=== PATIENT | female | born 2000 | race Caucasian/White ===

== ENCOUNTER → 2019-07-21 | Outpatient (REF) | payer OTHER ==
[2019-07-21 13:01] LABS: APPEARANCE, URINE HAZY (CLEAR); BACTERIA, URINE AUTO 3+ (NEGATIVE); BILIRUBIN, URINE AUTO NEGATIVE (NEGATIVE); BLOOD, URINE BLOOD NEGATIVE (NEGATIVE); COLOR, URINE YELLOW (YELLOW); GLUCOSE, URINE (UA) AUTO NEGATIVE (NEGATIVE); KETONE, URINE AUTO NEGATIVE (NEGATIVE); LEUKOCYTE ESTERASE, URINE AUTO TRACE (NEGATIVE); MUCUS, URINE SMALL (NEGATIVE); NITRITE, URINE AUTO POSITIVE (NEGATIVE); PROTEIN, URINE AUTO NEGATIVE (NEGATIVE); RBC, URINE AUTO 1 /HPF (0-3); SPECIFIC GRAVITY URINE AUTO 1.019 (1.002-1.035); SQUAMOUS EPITHELIAL CELL UR AU 4 /HPF (0-6); UROBILINOGEN, URINE AUTO 0.2 mg/dL (0.0-2.0); WBC, URINE AUTO 8 /HPF (0-3)
== END ==
LOC: M LAB REF 12:20
PROVIDERS: ATTEND Nurse Practitioner Women's Health
DX: N39.0 Urinary tract infection, site not specified (principal)

== ENCOUNTER → 2019-10-29 | Outpatient (REF) | payer OTHER ==
[2019-10-29 16:40] LABS: APPEARANCE, URINE CLEAR (CLEAR); BACTERIA, URINE AUTO 1+ (NEGATIVE); BILIRUBIN, URINE AUTO NEGATIVE (NEGATIVE); BLOOD, URINE BLOOD NEGATIVE (NEGATIVE); COLOR, URINE STRAW (YELLOW); GLUCOSE, URINE (UA) AUTO NEGATIVE (NEGATIVE); KETONE, URINE AUTO NEGATIVE (NEGATIVE); LEUKOCYTE ESTERASE, URINE AUTO NEGATIVE (NEGATIVE); NITRITE, URINE AUTO NEGATIVE (NEGATIVE); PROTEIN, URINE AUTO NEGATIVE (NEGATIVE); RBC, URINE AUTO 0 /HPF (0-3); SPECIFIC GRAVITY URINE AUTO 1.008 (1.002-1.035); SQUAMOUS EPITHELIAL CELL UR AU 0 /HPF (0-6); UROBILINOGEN, URINE AUTO 0.2 mg/dL (0.0-2.0); WBC, URINE AUTO 0 /HPF (0-3)
== END ==
LOC: M LAB REF 16:21
PROVIDERS: ATTEND Nurse Practitioner Women's Health
DX: R30.0 Dysuria (principal)

== ENCOUNTER → 2019-10-30 | Outpatient (CLI) | payer OTHER ==
--- NOTE | 2019-10-30 12:26 | REP ---
PELVIC ULTRASOUND: Real-time sonographic evaluation of the pelvis is performed utilizing transabdominal and endovaginal technique. Bladder measures 6.0 x 5.1 x 7.6 cm. Uterus measures 8.4 x 3.4 x 4.3 cm. Endometrial thickness is 3 mm. IUD is seen within the endometrial canal. Right ovary is enlarged measuring 6.5 x 5.1 x 6.9 cm. It contains a cyst with a couple of peripheral septations measuring 5.9 x 4.3 x 5.8 cm. There is no torsion of the right ovary with duplex Doppler evaluation. Left ovary measures 3.3 x 2.6 x 2.1 cm with a dominant follicle 1.8 cm in diameter. There is no torsion of the left ovary. No free fluid is seen. IMPRESSION: Right ovarian cyst 5.9 cm maximally with a couple of peripheral thin septations. Recommend followup ultrasound in 2 months to insure resolution. Electronically Signed by Myron Watson MD 10/30/2019 08:13 P
== END ==
LOC: M RAD 10:31
PROVIDERS: ATTEND Nurse Practitioner Women's Health
DX: R10.9 Unspecified abdominal pain (principal)

== ENCOUNTER → 2019-12-30 | Outpatient (CLI) | payer OTHER ==
--- NOTE | 2019-12-31 05:26 | REP ---
Clinical: Follow up ovarian cyst. Comparison: 10/30/2019. Technique: Transabdominal pelvic ultrasound followed by transvaginal examination for better evaluation of the endometrium and adnexa with color Doppler evaluation of the ovaries. Findings: Bladder is under distended and currently measures 5.0 x 3.8 x 1.6 cm. Normal anteverted uterus measures 7.9 x 3.0 x 4.9 cm. Endometrial complex measures 2.8 mm thickness and IUD in satisfactory position. Bilateral ovaries are normal in appearance and vascularity. Right ovary measures 3.7 x 2.4 x 2.4 cm (RI 0.59) and includes 2.2 x 1.6 x 1.2 cm simple, likely physiologic cyst and multiple follicles. Left ovary measures 3.7 x 2.6 x 2.1 cm and includes 1.9 x 2.5 x 1.6 cm complex septated cyst and multiple follicles. No pelvic fluid or adnexal mass lesion. Impression: 1. Current examination demonstrates cystic changes and follicles different from prior examination likely representing physiologic changes. Largest right ovarian cyst now measures 2.2 cm (previously noted at 5.9 cm). Electronically Signed by Waylon Bay MD 12/31/2019 05:17 A
== END ==
LOC: M RAD 10:00
PROVIDERS: ATTEND Nurse Practitioner Women's Health
DX: D39.11 Neoplasm of uncertain behavior of right ovary (principal); N83.201 Unspecified ovarian cyst, right side

== ENCOUNTER → 2020-07-10 | Outpatient (REF) | payer SELFPAY | LOC: EDSTATUS 11:10 → M LABSMTC 11:28 | PROVIDERS: ATTEND Family Medicine | DX: Z20.828 Contact with and (suspected) exposure to other viral communicable diseases (principal) ==

== ENCOUNTER → 2020-09-09 | Outpatient (REF) | payer SELFPAY | LOC: EDSTATUS 11:20 → M LABSMTC 11:21 | PROVIDERS: ATTEND Pediatrics | DX: Z20.822 Contact with and (suspected) exposure to COVID-19 (principal) ==

== ENCOUNTER → 2020-09-23 | Outpatient (REF) | payer OTHER ==
[2020-09-23 16:07] LABS: CHLAMYDIA DNA AMPLIFICATION NEGATIVE (NEGATIVE); GC DNA AMPLIFICATION NEGATIVE (NEGATIVE)
== END ==
LOC: M SFHCWAGY 13:30
PROVIDERS: ATTEND Nurse Practitioner Women's Health
DX: Z12.4 Encounter for screening for malignant neoplasm of cervix (principal)
CPT/HCPCS: 87491; 87591; G0123

== ENCOUNTER → 2020-12-16 | Outpatient (REF) | payer OTHER ==
[2020-12-16 13:49] LABS: HEMATOCRIT 39.9 % (36.0-47.0); HEMOGLOBIN 13.2 g/dl (12.0-15.5); MEAN CORPUSCULAR HEMOGLOBIN 29.8 pg (27.0-33.0); MEAN CORPUSCULAR HGB CONC 33.1 g/dl (32.0-36.5); MEAN CORPUSCULAR VOLUME 90.1 fl (80.0-96.0); PLATELET COUNT, AUTOMATED 230 10^3/uL (150-450); RED BLOOD COUNT 4.43 10^6/uL (4.00-5.40); WHITE BLOOD COUNT 11.7 10^3/uL (4.0-10.0)
[2020-12-16 14:10] LABS: HEMOGLOBIN A1c 4.8 %
[2020-12-16 14:26] LABS: FREE T4 1.15 NG/DL (0.76-1.46); GLUCOSE CHALLENGE TEST 1 HOUR 109 MG/DL (LESS THAN 140); THYROID STIMULATING HORMONE 0.463 uIU/ML (0.358-3.740)
[2020-12-16 15:07] LABS: HEPATITIS C VIRUS ABY INDEX < 0.0 INDEX (<0.8)
[2020-12-16 15:26] LABS: CHLAMYDIA DNA AMPLIFICATION NEGATIVE (NEGATIVE); GC DNA AMPLIFICATION NEGATIVE (NEGATIVE)
== END ==
LOC: M PLALAB 11:14
PROVIDERS: ATTEND Advanced Practice Midwife
DX: Z36.89 Encounter for other specified antenatal screening (principal); Z3A.08 8 weeks gestation of pregnancy

== ENCOUNTER → 2021-03-10 | Outpatient (CLI) | payer OTHER ==
--- NOTE | 2021-03-10 08:54 | REP ---
INDICATION: ANATOMY COMPARISON: None. TECHNIQUE: Transabdominal obstetrical ultrasound with color Doppler evaluation. FINDINGS: Examination demonstrates a single live intrauterine in variable presentation. motion is identified by technologist. Placenta is noted posterior and grade 1 without evidence for placenta previa or abruption. Amniotic fluid volume is normal. Cervix measures 3.5 cm in length and appears closed.. Selected gestational age: 20 weeks 5 days with VERONIKA 07/23/2021. Gestational age by current measurements 20 weeks 3 days with VERONIKA 07/25/2021. FHR equals 143 beats per minute. Estimated weight 345 grams (25thpercentile). Anatomical assessment demonstrates normal structures including cranium, choroid plexus, cavum, cerebellum/posterior fossa, facial features, lungs, four-chamber heart, diaphragm, stomach, cord insertion/three-vessel cord, kidneys/bladder, spine, and extremities. IMPRESSION: Single live intrauterine in variable presentation demonstrating appropriate estimated weight. Limited evaluation of the facial profile and cardiac ventricular outflow tracts. Remainder of the anatomical assessment is complete and normal. <Electronically signed by Waylon Bay > 03/10/21 [id number]
== END ==
LOC: M WHC 07:55
PROVIDERS: ATTEND Obstetrics & Gynecology
DX: Z36.89 Encounter for other specified antenatal screening (principal); Z3A.16 16 weeks gestation of pregnancy

== ENCOUNTER → 2021-03-31 | Outpatient (CLI) | payer OTHER ==
--- NOTE | 2021-03-31 10:10 | REP ---
INDICATION: F/U ANATOMY. COMPARISON: Obstetric ultrasound dated 03/10/2021. TECHNIQUE: Multiple ultrasonographic images of the gravid uterus. FINDINGS: On the comparison study the facial profile, four-chamber view of the heart and cardiac right left ventricular outflow tracts were not optimally demonstrated. IMPRESSION: On the study today the facial profile, four-chamber view of the heart in the cardiac right left ventricular outflow tracts are optimally demonstrated and are unremarkable. There is a single intrauterine gestation in a cephalic presentation. heart rate is 158 beats per minute. The placenta is posterior with grade 1 maturity. There is no previa. Subjectively the amniotic fluid volume is normal. The cervix measures 4.2 cm length. The composite ultrasound gestational age by today's study is 23 weeks 6 days with an VERONIKA of 07/22/2021. Gestational age by the 1st study is 23 weeks 5 days with an VERONIKA of 07/23/2021. Review of the growth graphs indicates normal interval growth. weight is 622 g/1 lb, 5 oz. This is the 42nd percentile for 23 weeks 5 days. <Electronically signed by Myron Estrada > 03/31/21 [id number]
== END ==
LOC: M WHC 08:23
PROVIDERS: ATTEND Advanced Practice Midwife
DX: Z36.9 Encounter for antenatal screening, unspecified (principal); Z3A.23 23 weeks gestation of pregnancy

== ENCOUNTER → 2021-04-08 | Outpatient (REF) | payer OTHER | LOC: M PLALAB 12:41 | PROVIDERS: ATTEND Obstetrics & Gynecology | DX: Z36.89 Encounter for other specified antenatal screening (principal); Z3A.24 24 weeks gestation of pregnancy ==

== ENCOUNTER → 2021-04-26 | Outpatient (CLI) | payer OTHER ==
[2021-04-26 15:47] LABS: HEMATOCRIT 38.3 % (36.0-47.0); HEMOGLOBIN 12.6 g/dl (12.0-15.5); MEAN CORPUSCULAR HEMOGLOBIN 30.1 pg (27.0-33.0); MEAN CORPUSCULAR HGB CONC 32.9 g/dl (32.0-36.5); MEAN CORPUSCULAR VOLUME 91.4 fl (80.0-96.0); PLATELET COUNT, AUTOMATED 248 10^3/uL (150-450); RED BLOOD COUNT 4.19 10^6/uL (4.00-5.40)
== END ==
LOC: M PLALAB 12:40
PROVIDERS: ATTEND Obstetrics & Gynecology
DX: Z36.89 Encounter for other specified antenatal screening (principal); Z3A.24 24 weeks gestation of pregnancy

== ENCOUNTER → 2021-06-24 | Outpatient (REF) | payer OTHER | LOC: M SFHCWAGY 10:07 | PROVIDERS: ATTEND Obstetrics & Gynecology | DX: Z34.93 Encounter for supervision of normal pregnancy, unspecified, third trimester (principal) ==

== ENCOUNTER 2021-07-21 10:21 | Outpatient (CLI) | payer OTHER ==
[~2021-07-21] VITALS: Ht 160 cm; Wt 99.2 kg
[2021-07-21 10:41] VITALS: BP 130/78
[2021-07-21] MEDS ORDERED: TUMS500C PO (10:51)
[2021-07-21] MEDS ORDERED: STUACAP PO (10:51)
[2021-07-21] MEDS ORDERED: ACET325C5 PO (20:08)
[2021-07-21] MEDS ORDERED: BENA25CA4 PO (20:08)
== END 2021-07-21 11:45 | disposition home or self-care (01) ==
LOC: M LDO 10:21
PROVIDERS: ATTEND Obstetrics & Gynecology
DX: O60.03 Preterm labor without delivery, third trimester (principal); Z3A.39 39 weeks gestation of pregnancy
CPT/HCPCS: 59025; G0378; G0463

== ENCOUNTER 2021-07-21 19:49 | Inpatient (IN) | payer OTHER ==
[~2021-07-21] VITALS: Ht 165.1 cm; Wt 99.7 kg
[~2021-07-21 19:49] MED LIST: STUACAP PO; TUMS500C PO
[2021-07-21 20:01] VITALS: BP 125/73
[2021-07-21] MEDS ORDERED: ACET325C5 PO (20:08)
[2021-07-21] MEDS ORDERED: BENA25CA4 PO (20:08)
[2021-07-21] MEDS ORDERED: PROMETHAZINE INJ 25 MG/ML VIAL (J2550) IV ONE (20:45)
[2021-07-21] MEDS ORDERED: BUTORPHANOL 2 MG/ML INJ (J0595) IV ONE (20:45)
[2021-07-21 21:01] VITALS: BP 102/65
[2021-07-21 21:11] LABS: HEMATOCRIT 40.9 % (36.0-47.0); HEMOGLOBIN 13.9 g/dl (12.0-15.5); MEAN CORPUSCULAR HEMOGLOBIN 29.7 pg (27.0-33.0); MEAN CORPUSCULAR VOLUME 87.4 fl (80.0-96.0); PLATELET COUNT, AUTOMATED 206 10^3/uL (150-450); RED BLOOD COUNT 4.68 10^6/uL (4.00-5.40); WHITE BLOOD COUNT 17.6 10^3/uL (4.0-10.0)
[2021-07-21] MEDS ORDERED: LACTATED RINGER'S 1000 ML IV STA (21:26)
[2021-07-21] MEDS ORDERED: METHYLERGONOVINE MALEATE 0.2 MG/ML VIAL (J2210) IM PRN (21:30)
[2021-07-21] MEDS ORDERED: LIDOCAINE 1% MDV 20ML VIAL INFIL PRN (21:30)
[2021-07-21] MEDS ORDERED: TRANEXAMIC ACID INJection 1,000 MG in NS 100 ML IV PRN (21:30)
[2021-07-21] MEDS ORDERED: CARBOPROST TROMETHAMINE 250 MCG/ML AMP IM PRN (21:30)
[2021-07-21] MEDS ORDERED: OXYTOCIN DRIP 30 UNITS in IV 1 EA IV SCH (21:30)
[2021-07-21 22:05] VITALS: BP 120/79
[2021-07-21 23:06] VITALS: BP 99/55
[2021-07-21 23:11] LABS: HIV 1&2 SCREEN CENTAUR NEGATIVE (NEGATIVE)
[2021-07-22] VITALS (78 sets, daily range): BP systolic 95–145; BP diastolic 53–99
[2021-07-22] MEDS ORDERED: FENTANYL 2MCG/ML ROPIVACAINE 0.2% IN 0.9% NACL 100ML IVBAG As Ordered ONE (01:33)
[2021-07-22] MEDS ORDERED: diphenhydrAMINE 50MG/ML VIAL (J1200) IV PRN (02:14)
[2021-07-22] MEDS ORDERED: ONDANSETRON 4MG/2ML VIAL IV PRN (02:14)
[2021-07-22] MEDS ORDERED: LACTATED RINGER'S 1000 ML IV PRN (02:14)
[2021-07-22] MEDS ORDERED: NALOXONE INJ 0.4MG/1ML VIAL (J2310 PER 1MG) IV PRN (02:14)
[2021-07-22] MEDS ORDERED: REFRIGERATOR IV KEYS XX PRN (02:14)
[2021-07-22] MEDS ORDERED: EPIDURAL COMMENT XX SCH (02:14)
[2021-07-22] MEDS ORDERED: EPIDURAL/PCA KEYS XX PRN (02:14)
[2021-07-22] MEDS: FENTANYL/ROPIVACAINE/NACL BAG 100 ML EPIDURAL SCH ×2 (03:34→11:45)
[2021-07-22] MEDS: LR 1,000 ML IV SCH ×4 (03:35→14:18)
[2021-07-22] MEDS: ePHEDrine SULFATE 25 MG/5 ML(5MG/ML) SYRINGE IV PRN ×2 (04:41→05:15)
[2021-07-22 15:59] LABS: CORD GAS ABE A -6.6; CORD GAS ABE V -9.3; CORD GAS HCO3 A 18.5 MEQ/L; CORD GAS O2 SAT A 77.2 %; CORD GAS O2 SAT V 69.1 %; CORD GAS PCO2 A 35.8 mmHg; CORD GAS PCO2 V 49.9 mmHg; CORD GAS PH A 7.33 UNITS; CORD GAS PH V 7.199 UNITS; CORD GAS PO2 A 33.9 mmHg; CORD GAS PO2 V 34.9 mmHg; CORD GAS SBC A 18.7 MEQ/L; CORD GAS SBC V 16.6 MEQ/L; CORD GAS TCO2 A 19.6 MEQ/L; CORD GAS TCO2 V 20.6 MEQ/L
[2021-07-22] MEDS ORDERED: OXYTOCIN DRIP 30 UNITS in IV 1 EA IV SCH (16:10)
[2021-07-22] MEDS ORDERED: MEASLES,MUMPS,RUBELLA VACCINE INJ (MMR-II) (90707) SC SCH (16:10)
[2021-07-22] MEDS ORDERED: ACETAMINOPHEN TAB 650MG DOSE (2X325MG) PO PRN (16:10)
[2021-07-22] MEDS ORDERED: IBUPROFEN 600MG TAB PO PRN (16:10)
[2021-07-22] MEDS ORDERED: RHOGAM 300 MCG (1500 IU) INJ (J2790) IM SCH (16:10)
[2021-07-22] MEDS ORDERED: MOM 30ML SUSPENSION UDC PO PRN (16:10)
[2021-07-22] MEDS ORDERED: METHYLERGONOVINE MALEATE 0.2 MG TAB PO PRN (16:10)
[2021-07-22] MEDS ORDERED: ANUSOL HC CREAM 30GM TOP PRN (16:10)
[2021-07-22] MEDS ORDERED: DIBUCAINE 1% OINTMENT 30GM TOP PRN (16:10)
[2021-07-22] MEDS: ACETAMINOPHEN 500 MG TAB PO PRN ×2 (17:25→23:30)
[2021-07-22] MEDS: DOCUSATE SODIUM 100MG CAPSULE PO PRN (23:29)
[2021-07-23] MEDS: IBUPROFEN 800 MG TAB PO PRN ×3 (04:43→20:07)
[2021-07-23 06:08] VITALS: BP 111/65
[2021-07-23] MEDS: PRENATAL VITAMINS CHEWABLE TABLET PO SCH (08:10)
[2021-07-23] MEDS: ACETAMINOPHEN 500 MG TAB PO PRN ×2 (08:11→16:56)
[2021-07-23 18:00] VITALS: BP 114/67
[2021-07-23] MEDS: DOCUSATE SODIUM 100MG CAPSULE PO PRN (20:07)
[2021-07-24] MEDS: ACETAMINOPHEN 500 MG TAB PO PRN ×2 (00:19→08:43)
[2021-07-24] MEDS: IBUPROFEN 800 MG TAB PO PRN ×2 (05:16→13:09)
[2021-07-24 06:00] VITALS: BP 120/87
[2021-07-24] MEDS: PRENATAL VITAMINS CHEWABLE TABLET PO SCH (08:42)
== END 2021-07-24 17:50 | disposition home or self-care (01) | DRG 807 ==
LOC: M LDO 19:49 → M LDI 21:08 → M OBS 07-22 18:00
PROVIDERS: ADMIT Obstetrics & Gynecology; ATTEND Advanced Practice Midwife
PROC: 10E0XZZ Delivery of Products of Conception, External Approach (ICD-10-PCS; principal; 2021-07-22)
PROC: 0KQM0ZZ Repair Perineum Muscle, Open Approach (ICD-10-PCS; 2021-07-22)
DX: O99.62 Diseases of the digestive system complicating childbirth (principal); Z37.0 Single live birth; K21.9 Gastro-esophageal reflux disease without esophagitis; Z3A.39 39 weeks gestation of pregnancy; O70.1 Second degree perineal laceration during delivery

== ENCOUNTER 2021-07-25 06:05 | Outpatient (RCR) ==
[~2021-07-25 06:05] MED LIST changes: +ACET325C5 PO; +BENA25CA4 PO
== END 2021-07-25 15:00 | disposition home or self-care (01) ==
LOC: M EMP 06:05
PROVIDERS: ATTEND Pediatrics
DX: Z11.52 Encounter for screening for COVID-19 (principal)

== ENCOUNTER → 2021-08-26 | Outpatient (REF) | payer OTHER ==
[2021-08-26 10:35] LABS: RSV AMPLIFICATION NEGATIVE (NEGATIVE)
== END ==
LOC: M LAB REF 09:26
PROVIDERS: ATTEND Pediatrics
DX: Z03.818 Encounter for observation for suspected exposure to other biological agents ruled out (principal)

== ENCOUNTER → 2021-10-18 | Outpatient (REF) | payer OTHER | LOC: M SFHCWAGY 16:53 | PROVIDERS: ATTEND Obstetrics & Gynecology | DX: Z01.419 Encounter for gynecological examination (general) (routine) without abnormal findings (principal); Z12.4 Encounter for screening for malignant neoplasm of cervix ==

== ENCOUNTER → 2021-10-24 | Outpatient (CLI) | payer OTHER | LOC: M WHC 15:00 | PROVIDERS: ATTEND Obstetrics & Gynecology | DX: T83.32XA Displacement of intrauterine contraceptive device, initial encounter (principal) ==

== ENCOUNTER → 2022-11-24 | Outpatient (CLI) | payer BC ==
[2022-11-24 17:58] LABS: HEMATOCRIT 40.5 % (36.0-47.0); HEMOGLOBIN 13.3 g/dl (12.0-15.5); MEAN CORPUSCULAR HEMOGLOBIN 29.4 pg (27.0-33.0); MEAN CORPUSCULAR HGB CONC 32.8 g/dl (32.0-36.5); MEAN CORPUSCULAR VOLUME 89.4 fl (80.0-96.0); PLATELET COUNT, AUTOMATED 244 10^3/uL (150-450); RED BLOOD COUNT 4.53 10^6/uL (4.00-5.40); WHITE BLOOD COUNT 12.9 10^3/uL (4.0-10.0)
[2022-11-24 20:13] LABS: GC DNA AMPLIFICATION NEGATIVE (NEGATIVE)
[2022-12-01 13:39] LABS: HIV 1&2 SCREEN CENTAUR NEGATIVE (NEGATIVE)
== END ==
LOC: M PLALAB 15:05
PROVIDERS: ATTEND Advanced Practice Midwife
DX: Z34.91 Encounter for supervision of normal pregnancy, unspecified, first trimester (principal)

== ENCOUNTER → 2023-01-17 | Outpatient (REF) | LOC: M EMP 10:48 | PROVIDERS: ATTEND Family Medicine | DX: Z11.52 Encounter for screening for COVID-19 (principal) ==

== ENCOUNTER → 2023-02-09 | Outpatient (CLI) | payer BC | LOC: M WHC 13:34 | PROVIDERS: ATTEND Advanced Practice Midwife | DX: Z34.92 Encounter for supervision of normal pregnancy, unspecified, second trimester (principal) ==

== ENCOUNTER → 2023-03-26 | Outpatient (CLI) | payer BC | LOC: M WHC 08:07 | PROVIDERS: ATTEND Advanced Practice Midwife | DX: N20.0 Calculus of kidney (principal) ==

== ENCOUNTER → 2023-04-06 | Outpatient (CLI) | payer BC ==
[2023-04-06 14:10] LABS: HEMATOCRIT 37.9 % (36.0-47.0); HEMOGLOBIN 12.3 g/dl (12.0-15.5); MEAN CORPUSCULAR HEMOGLOBIN 29.5 pg (27.0-33.0); MEAN CORPUSCULAR HGB CONC 32.5 g/dl (32.0-36.5); MEAN CORPUSCULAR VOLUME 90.9 fl (80.0-96.0); PLATELET COUNT, AUTOMATED 230 10^3/uL (150-450); RED BLOOD COUNT 4.17 10^6/uL (4.00-5.40)
[2023-04-06 15:47] LABS: GC DNA AMPLIFICATION NEGATIVE (NEGATIVE)
== END ==
LOC: M PLALAB 08:41
PROVIDERS: ATTEND Advanced Practice Midwife
DX: Z34.92 Encounter for supervision of normal pregnancy, unspecified, second trimester (principal)

== ENCOUNTER → 2023-05-18 | Outpatient (CLI) | payer BC | LOC: M WHC 13:05 | PROVIDERS: ATTEND Obstetrics & Gynecology | DX: O26.843 Uterine size-date discrepancy, third trimester (principal); Z3A.34 34 weeks gestation of pregnancy ==

== ENCOUNTER → 2023-06-11 | Outpatient (REF) | payer BC | LOC: M SFHCWAGY 12:56 | PROVIDERS: ATTEND Advanced Practice Midwife | DX: Z34.93 Encounter for supervision of normal pregnancy, unspecified, third trimester (principal) ==

== ENCOUNTER 2023-06-22 21:27 | Inpatient (IN) | payer BC ==
[~2023-06-22] VITALS: Ht 160 cm; Wt 104.2 kg
[2023-06-22] VITALS (8 sets, daily range): BP systolic 126–147; BP diastolic 72–79
[2023-06-22] MEDS ORDERED: NEXI20CA PO (21:54)
[2023-06-22] MEDS ORDERED: FAMO20TA PO (21:54)
[2023-06-22] MEDS ORDERED: CETI10CA2 PO (21:54)
[2023-06-22] MEDS ORDERED: HOME MED LIST COMPLETE! XX SCH (22:00)
[2023-06-22] MEDS ORDERED: LACTATED RINGER'S 1000 ML IV STA (22:12)
[2023-06-22] MEDS ORDERED: LR 1,000 ML IV SCH (22:15)
[2023-06-22] MEDS ORDERED: OXYTOCIN DRIP 30 UNITS in IV 1 EA IV PRN (22:15)
[2023-06-22] MEDS ORDERED: TRANEXAMIC ACID INJection 1,000 MG in NS 100 ML IV PRN (22:15)
[2023-06-22] MEDS ORDERED: CARBOPROST TROMETHAMINE 250 MCG/ML AMP IM PRN (22:15)
[2023-06-22] MEDS ORDERED: METHYLERGONOVINE MALEATE 0.2MG/ML 1ML VIAL IM PRN (22:15)
[2023-06-22] MEDS ORDERED: LIDOCAINE 1% MDV 20ML VIAL INFIL PRN (22:15)
[2023-06-22 22:50] LABS: HEMOGLOBIN 13.5 g/dl (12.0-15.5); MEAN CORPUSCULAR HEMOGLOBIN 29.4 pg (27.0-33.0); MEAN CORPUSCULAR HGB CONC 33.8 g/dl (32.0-36.5); MEAN CORPUSCULAR VOLUME 87.1 fl (80.0-96.0); PLATELET COUNT, AUTOMATED 241 10^3/uL (150-450); RED BLOOD COUNT 4.59 10^6/uL (4.00-5.40); WHITE BLOOD COUNT 13.3 10^3/uL (4.0-10.0)
[2023-06-22] MEDS ORDERED: NALOXONE INJ 0.4MG/1ML VIAL IV PRN (23:20)
[2023-06-22] MEDS ORDERED: LR 500 ML IV PRN (23:20)
[2023-06-22] MEDS ORDERED: diphenhydrAMINE 50MG/ML VIAL IV PRN (23:20)
[2023-06-22] MEDS ORDERED: EPIDURAL/PCA KEYS XX PRN (23:20)
[2023-06-22] MEDS ORDERED: FENTANYL/ROPIVACAINE/NACL BAG 100 ML EPIDURAL SCH (23:20)
[2023-06-22] MEDS ORDERED: ONDANSETRON 4MG 2ML VIAL IV PRN (23:20)
[2023-06-23] VITALS (39 sets, daily range): BP systolic 94–133; BP diastolic 55–82; O2SAT 98
[2023-06-23] MEDS: ePHEDrine SULFATE 25 MG/5 ML(5MG/ML) SYRINGE IVP PRN ×2 (00:22→00:31)
[2023-06-23] MEDS ORDERED: IBUPROFEN 600MG TAB PO PRN (03:20)
[2023-06-23] MEDS ORDERED: ACETAMINOPHEN TAB 650MG DOSE (2X325MG) PO PRN (03:20)
[2023-06-23] MEDS ORDERED: DOCUSATE SODIUM 100MG CAPSULE PO PRN (03:20)
[2023-06-23] MEDS ORDERED: METHYLERGONOVINE MALEATE 0.2 MG TAB PO PRN (03:20)
[2023-06-23] MEDS ORDERED: RHOGAM 300MCG (1500IU) INJ IM SCH (03:20)
[2023-06-23] MEDS ORDERED: ANUSOL HC CREAM 30GM TOP PRN (03:20)
[2023-06-23] MEDS: IBUPROFEN 800 MG TAB PO PRN ×3 (05:55→20:19)
[2023-06-23] MEDS: PRENATAL VITAMINS CHEWABLE TABLET PO SCH (09:08)
[2023-06-23] MEDS: ACETAMINOPHEN 500 MG TAB PO PRN ×2 (09:08→17:53)
[2023-06-23] MEDS: DIBUCAINE 1% OINTMENT 30GM TOP PRN (12:08)
[2023-06-24] MEDS: ACETAMINOPHEN 500 MG TAB PO PRN ×2 (00:35→09:54)
[2023-06-24] MEDS: IBUPROFEN 800 MG TAB PO PRN ×2 (05:03→12:18)
[2023-06-24 05:47] VITALS: BP 101/58; O2SAT 100
[2023-06-24] MEDS: PRENATAL VITAMINS CHEWABLE TABLET PO SCH (07:54)
[2023-06-24] MEDS ORDERED: IBUP-1022 PO (11:16)
[2023-06-24] MEDS: DIBUCAINE 1% OINTMENT 30GM TOP PRN (12:28)
[2023-06-25] MEDS ORDERED: MEASLES,MUMPS,RUBELLA VACCINE INJ (MMR-II) SC.IMMUN ONE (09:00)
== END 2023-06-24 16:36 | disposition home or self-care (01) | DRG 560 ==
LOC: M LDO 21:27 → M LDI 22:15 → M OBS 06-23 05:50
PROVIDERS: ADMIT Advanced Practice Midwife; ATTEND Advanced Practice Midwife
PROC: 10E0XZZ Delivery of Products of Conception, External Approach (ICD-10-PCS; principal; 2023-06-23)
PROC: 0KQM0ZZ Repair Perineum Muscle, Open Approach (ICD-10-PCS; 2023-06-23)
DX: O99.62 Diseases of the digestive system complicating childbirth (principal); K21.9 Gastro-esophageal reflux disease without esophagitis; Z3A.38 38 weeks gestation of pregnancy; Z79.899 Other long term (current) drug therapy; O32.6XX0 Maternal care for compound presentation, not applicable or unspecified; Z37.0 Single live birth; O70.1 Second degree perineal laceration during delivery

== ENCOUNTER → 2023-11-20 | Outpatient (REF) | payer BC ==
[~2023-11-20] MED LIST changes: +CETI10CA2 PO; +FAMO20TA PO; +IBUP-1022 PO; +NEXI20CA PO
== END ==
LOC: M PLALAB 13:21
PROVIDERS: ATTEND Advanced Practice Midwife
DX: Z12.4 Encounter for screening for malignant neoplasm of cervix (principal)

== ENCOUNTER → 2024-06-05 | Outpatient (CLI) | payer BC ==
[2024-06-05 11:00] LABS: HEMATOCRIT 43.1 % (36.0-47.0); HEMOGLOBIN 14.1 g/dl (12.0-15.5); MEAN CORPUSCULAR HEMOGLOBIN 29.5 pg (27.0-33.0); MEAN CORPUSCULAR HGB CONC 32.7 g/dl (32.0-36.5); MEAN CORPUSCULAR VOLUME 90.2 fl (80.0-96.0); PLATELET COUNT, AUTOMATED 279 10^3/uL (150-450); RED BLOOD COUNT 4.78 10^6/uL (4.00-5.40); WHITE BLOOD COUNT 6.8 10^3/uL (4.0-10.0)
[2024-06-05 14:03] LABS: LIPASE 39 U/L (12-53)
[2024-06-05 14:05] LABS: ALBUMIN 4.1 G/DL (3.2-5.2); ALKALINE PHOSPHATASE 77 U/L (46-116); ALT/SGPT 17 U/L (7.0-40); AST/SGOT 11 U/L (<34); BILIRUBIN,TOTAL 0.6 MG/DL (0.3-1.2); BLOOD UREA NITROGEN 11 MG/DL (9-23); CALCIUM LEVEL 9.4 MG/DL (8.5-10.1); CARBON DIOXIDE LEVEL 26 MMOL/L (20-31); CHLORIDE LEVEL 105 MMOL/L (98-107); CREATININE FOR GFR 0.71 MG/DL (0.55-1.30); GLOMERULAR FILTRATION RATE > 60.0 (>60); GLUCOSE, FASTING 79 MG/DL (60-100); POTASSIUM SERUM 4.4 MMOL/L (3.5-5.1); SODIUM LEVEL 137 MMOL/L (136-145); TOTAL PROTEIN 7.2 G/DL (5.7-8.2)
== END ==
LOC: M LAB 10:19
PROVIDERS: ATTEND Student in an Organized Health Care Education/Training Program
DX: M54.59 Other low back pain (principal)

== ENCOUNTER → 2024-06-06 | Outpatient (CLI) | payer BC | LOC: M RAD 12:43 | PROVIDERS: ATTEND Student in an Organized Health Care Education/Training Program | DX: R30.0 Dysuria (principal); M54.50 Low back pain, unspecified ==

== ENCOUNTER → 2024-12-26 | Outpatient (CLI) | payer BC ==
[2024-12-26 17:34] LABS: HEMATOCRIT 39.2 % (36.0-47.0); HEMOGLOBIN 13.2 g/dl (12.0-15.5); MEAN CORPUSCULAR HEMOGLOBIN 30.2 pg (27.0-33.0); MEAN CORPUSCULAR HGB CONC 33.7 g/dl (32.0-36.5); MEAN CORPUSCULAR VOLUME 89.7 fl (80.0-96.0); PLATELET COUNT, AUTOMATED 239 10^3/uL (150-450); RED BLOOD COUNT 4.37 10^6/uL (4.00-5.40); WHITE BLOOD COUNT 11.7 10^3/uL (4.0-10.0)
[2024-12-26 18:34] LABS: Trichomonas vaginalis (AMP) NOT DETECTED (NEGATIVE)
[2024-12-26 18:39] LABS: HIV 1&2 SCREEN NEGATIVE (NEGATIVE)
[2024-12-26 18:47] LABS: HEPATITIS C VIRUS ABY INDEX 0.05 INDEX (<0.8)
[2024-12-26 18:57] LABS: GC DNA AMPLIFICATION NEGATIVE (NEGATIVE)
== END ==
LOC: M PLALAB 15:34
PROVIDERS: ATTEND Specialist
DX: Z34.81 Encounter for supervision of other normal pregnancy, first trimester (principal)

== ENCOUNTER → 2024-12-29 | Outpatient (REF) | payer BC | LOC: M PLALAB 08:54 | PROVIDERS: ATTEND Nurse Practitioner Family | DX: Z34.80 Encounter for supervision of other normal pregnancy, unspecified trimester (principal) ==

== ENCOUNTER → 2025-03-06 | Outpatient (CLI) | payer BC | LOC: M WHC 14:22 | PROVIDERS: ATTEND Nurse Practitioner Family | DX: Z34.80 Encounter for supervision of other normal pregnancy, unspecified trimester (principal) ==

== ENCOUNTER → 2025-03-20 | Outpatient (CLI) | payer BC ==
[2025-03-20 14:01] LABS: PLATELET COUNT, AUTOMATED 240 10^3/uL (150-450)
[2025-03-20 14:36] LABS: GLUCOSE CHALLENGE TEST 1 HOUR 123 MG/DL (LESS THAN 140)
[2025-03-20 14:48] LABS: Trichomonas vaginalis (AMP) NOT DETECTED (NEGATIVE)
[2025-03-20 15:06] LABS: HIV 1&2 SCREEN NEGATIVE (NEGATIVE)
[2025-03-20 15:12] LABS: GC DNA AMPLIFICATION NEGATIVE (NEGATIVE)
[2025-03-20 15:14] LABS: HEPATITIS C VIRUS ABY INDEX < 0.02 INDEX (<0.8)
== END ==
LOC: M PLALAB 10:11
PROVIDERS: ATTEND Obstetrics & Gynecology
DX: Z34.80 Encounter for supervision of other normal pregnancy, unspecified trimester (principal)

== ENCOUNTER → 2025-03-20 | Outpatient (CLI) | payer BC ==
[~2025-03-20] MED LIST changes: -IBUP-1022 PO; +IBUP600T42 PO
== END ==
LOC: M WHC 09:05
PROVIDERS: ATTEND Nurse Practitioner Family
DX: Z34.80 Encounter for supervision of other normal pregnancy, unspecified trimester (principal); Z36.2 Encounter for other antenatal screening follow-up; Z3A.27 27 weeks gestation of pregnancy

== ENCOUNTER → 2025-05-22 | Outpatient (REF) | payer BC | LOC: M PLALAB 09:10 | PROVIDERS: ATTEND Student in an Organized Health Care Education/Training Program | DX: Z3A.36 36 weeks gestation of pregnancy (principal) ==

== ENCOUNTER 2025-06-04 23:16 | Inpatient (IN) | payer BC ==
[~2025-06-04] VITALS: Ht 160 cm; Wt 106.8 kg
[2025-06-04 23:34] VITALS: BP 110/82
[2025-06-04] MEDS ORDERED: HOME MED LIST COMPLETE! XX SCH (23:35)
[2025-06-04] MEDS ORDERED: LEXA1TAB PO (23:35)
[2025-06-05] VITALS (14 sets, daily range): BP systolic 95–115; BP diastolic 51–70; O2SAT 97–100
[2025-06-05 00:42] LABS: PLATELET COUNT, AUTOMATED 255 10^3/uL (150-450)
[2025-06-05] MEDS ORDERED: NALOXONE INJ 0.4 MG/1 ML VIAL IV PRN ×2 (01:10→01:15)
[2025-06-05] MEDS ORDERED: EPIDURAL/PCA KEYS XX PRN ×2 (01:10→01:15)
[2025-06-05] MEDS ORDERED: diphenhydrAMINE 50 MG/ML VIAL IV PRN ×2 (01:10→01:15)
[2025-06-05] MEDS ORDERED: LR 500 ML IV PRN ×2 (01:10→01:15)
[2025-06-05] MEDS ORDERED: ONDANSETRON 4MG 2ML VIAL IV PRN (01:15)
[2025-06-05] MEDS ORDERED: FENTANYL/ROPIVACAINE/NACL BAG 100 ML EPIDURAL SCH (01:15)
[2025-06-05] MEDS: ONDANSETRON 4MG 2ML VIAL IV PRN (01:21)
[2025-06-05] MEDS: FENTANYL/ROPIVACAINE/NACL BAG 100 ML EPIDURAL SCH (01:21)
[2025-06-05 01:27] LABS: HIV 1&2 SCREEN NEGATIVE (NEGATIVE)
[2025-06-05 01:35] LABS: HEPATITIS C VIRUS ABY INDEX 0.03 INDEX (<0.8)
[2025-06-05] MEDS: LR 1,000 ML IV SCH (02:31)
[2025-06-05] MEDS: LR 1,000 ML IV ONE (02:31)
[2025-06-05] MEDS: OXYTOCIN DRIP 30 UNITS in IV 1 EA IV PRN (03:02)
[2025-06-05] MEDS: LIDOCAINE 1% MDV 20 ML VIAL INFIL PRN (03:07)
[2025-06-05] MEDS ORDERED: DOCUSATE SODIUM 100 MG CAPSULE PO PRN (03:30)
[2025-06-05] MEDS ORDERED: METHYLERGONOVINE MALEATE 0.2 MG TAB PO PRN (03:30)
[2025-06-05] MEDS ORDERED: ACETAMINOPHEN 325 MG TAB PO PRN (03:30)
[2025-06-05] MEDS: ACETAMINOPHEN 500 MG TAB PO PRN (03:53)
[2025-06-05] MEDS: IBUPROFEN 600 MG TAB PO PRN (05:48)
[2025-06-05] MEDS: PRENATAL VITAMINS CHEWABLE TABLET PO SCH (07:56)
[2025-06-05] MEDS: DIBUCAINE 1% OINTMENT 30 GM TOP PRN (07:57)
[2025-06-05] MEDS: RHOGAM 300MCG (1500IU) INJ IM SCH (11:18)
[2025-06-05] MEDS: IBUPROFEN 800 MG TAB PO PRN (12:40)
[2025-06-05] MEDS: ESCITALOPRAM OXALATE 10 MG TABLET PO SCH (20:27)
[2025-06-06 06:00] VITALS: BP 101/59; O2SAT 98
[2025-06-06 10:06] LABS: PLATELET COUNT, AUTOMATED 184 10^3/uL (150-450)
[2025-06-06] MEDS ORDERED: ACET-683 PO (11:07)
[2025-06-07] MEDS ORDERED: MEASLES,MUMPS,RUBELLA VACCINE INJ (MMR-II) SC.IMMUN ONE (09:00)
== END 2025-06-06 11:54 | disposition home or self-care (01) | DRG 560 ==
LOC: M LDO 23:16 → M LDI 23:51 → M OBS 06-05 05:50
PROVIDERS: ADMIT Specialist; ATTEND Specialist
PROC: 10E0XZZ Delivery of Products of Conception, External Approach (ICD-10-PCS; principal; 2025-06-05)
PROC: 0KQM0ZZ Repair Perineum Muscle, Open Approach (ICD-10-PCS; 2025-06-05)
DX: O70.1 Second degree perineal laceration during delivery (principal); Z37.0 Single live birth; Z3A.38 38 weeks gestation of pregnancy